=== PATIENT | male | born 1985 | race Caucasian/White ===

== ENCOUNTER 2016-08-29 22:19 | Emergency (ER) | payer MEDICAID ==
--- NOTE | 2016-08-29 22:45 | EDPHY ---
H & P Time Seen by Provider: 08/29/16 22:35 HPI/ROS: CHIEF COMPLAINT: Polysubstance abuse HISTORY OF PRESENT ILLNESS: 31-year-old male arrives via ambulance after he was found wandering at the [employer] concert, unable to ambulate without assistance and had urinated on himself. States that he was not incontinent simply that he could not make it to the restroom in time. He admits to ketamine and MDMA usage. He has no complaints of pain or discomfort. He denies trauma. REVIEW OF SYSTEMS: A ten point review of systems was performed and is negative with the exception of the items mentioned in the HPI PAST MEDICAL & SURGICAL HISTORY: No pertinent medical or surgical history SOCIAL HISTORY: positive for ketamine MDMA PHYSICAL EXAM (Prior to examination, patient consented to physical exam, hands were washed and my usual and customary physical exam procedures followed) 1) GENERAL: Well-developed, well-nourished, alert and oriented. Appears to be in no acute distress. 2) HEAD: Normocephalic, atraumatic 3) HEENT: Pupils equal, round, reactive to light bilaterally. Sclera anicteric. no raccoon eyes no Jackson sign no rhinorrhea no otorrhea no hemotympanum 4) NECK: Full range of motion, no meningeal signs. 5) LUNGS: Clear auscultation bilaterally, no wheezes, no rhonchi, no retractions. 6) HEART: Regular rate and rhythm, no murmur, no heave, no gallop. 7) ABDOMEN: No guarding, no rebound, no focal tenderness, he has smell of urine to his pants, 8) MUSCULOSKELETAL: Moving all extremities, no focal areas of tenderness, no obvious trauma. No peripheral edema or discoloration. 9) BACK: No CVA tenderness, no midline vertebral tenderness, no fluctuance, no step-off, no obvious trauma, no visual or palpable abnormality. 10) SKIN: No rash, no petechiae. 11) Psychiatric: Patient is oriented X 3, there is no agitation. DIFFERENTIAL DIAGNOSIS: in no particular include but limited to polysubstance abuse, alcohol abuse, trauma Allergies/Adverse Reactions: No Known Allergies Allergy (Unverified 08/29/16 22:40) Home Medications: Medication Instructions Recorded NK [No Known Home Meds] 08/29/16 MDM/Departure - MDM ED Course/Re-evaluation: 1048 pm: The patient admits to polysubstance abuse admits to urinating on himself not because he was incontinent bu5t because he could not make it to the restroom in time at the [employer] concert. He has a friend who is coming to pick him up and take him home as he is awake alert oriented person place time events, clear speech pattern, stable steady gait without assistance. - Depart Disposition: Home, Routine, Self-Care Clinical Impression: Polysubstance abuse Condition: Good Instructions: Polysubstance Abuse (ED) Referrals: Gerardo Hall, [Medical Doctor] - 1-2 days without fail
[2016-08-29 23:10] VITALS: BP 156/110; PULSE 108; RESP 18; O2SAT 97
== END 2016-08-29 23:10 | disposition home or self-care (01) ==
LOC: EDBD 22:19
DX: F19.10 Other psychoactive substance abuse, uncomplicated (principal)